=== PATIENT | male | born 1985 | race African-American/Black ===

== ENCOUNTER 2017-05-16 14:03 | Emergency (ER) | payer SELFPAY ==
--- NOTE | 2017-05-16 15:34 | RADIOLOGY REPORT (SQ) ---
EXAM DESCRIPTION: SHOULDER RIGHT 2 OR MORE VIEWS COMPLETED DATE/TIME: 05/16/2017 3:23 pm REASON FOR STUDY: pain COMPARISON: 04/19/2010 NUMBER OF VIEWS: Three views. TECHNIQUE: Internal rotation, external rotation, and Y view images acquired of the right shoulder. LIMITATIONS: None. FINDINGS: MINERALIZATION: Normal. BONES: No acute fracture. There is a bone fragment inferior to the distal clavicle which is unchange d, consistent with remote trauma. JOINTS: Old AC joint separation. VISUALIZED LUNGS AND RIBS: No pneumothorax. No rib fracture. SOFT TISSUES: No radiopaque foreign body. OTHER: No other significant finding. IMPRESSION: No acute findings. TECHNICAL DOCUMENTATION: JOB ID: [id number] [employer]- All Rights Reserved Reading location - IP/workstation name: [email or web address]
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
[2017-05-16 16:22] VITALS: BP 141/86
== END 2017-05-16 16:22 | disposition home or self-care (01) ==
LOC: ER 14:03
DX: T14.90XA Injury, unspecified, initial encounter (principal); X58.XXXA Exposure to other specified factors, initial encounter; M19.90 Unspecified osteoarthritis, unspecified site; M25.511 Pain in right shoulder
CPT/HCPCS: 99283

== ENCOUNTER 2017-07-12 11:50 | Emergency (ER) | payer SELFPAY ==
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
--- NOTE | 2017-07-12 14:33 | RADIOLOGY REPORT (SQ) ---
EXAM DESCRIPTION: KNEE RIGHT 4 VIEWS COMPLETED DATE/TIME: 07/12/2017 2:22 pm REASON FOR STUDY: pop and pain while standing now swelling COMPARISON: 01/15/2013 right knee films NUMBER OF VIEWS: Four views. TECHNIQUE: AP, lateral, and both oblique radiographic images acquired of the right knee. LIMITATIONS: None. FINDINGS: MINERALIZATION: Normal. BONES: No acute fracture or dislocation. No worrisome bone lesions. JOINT: Large suprapatellar knee joint effusion SOFT TISSUES: No soft tissue swelling. No radio-opaque foreign body. OTHER: No other significant finding. IMPRESSION: Large suprapatellar knee joint effusion, worrisome for internal derangement. No fracture. No malalignment. TECHNICAL DOCUMENTATION: JOB ID: [id number] [employer]- All Rights Reserved Reading location - IP/workstation name: [email or web address]
[2017-07-12] MEDS ORDERED: LIDOCAINE 2% VISCOUS SOLN 20 ML UDCUP PO ONE (15:06)
[2017-07-12] MEDS ORDERED: METOCLOPRAMIDE HCL ORAL SOLN 10 MG/10 ML UDCUP PO ONE (15:06)
[2017-07-12] MEDS ORDERED: MAG HYDROX/AL HYDROX/SIMETH SUSP 30 ML UDCUP PO ONE (15:06)
[2017-07-12 15:27] VITALS: BP 116/74
== END 2017-07-12 15:27 | disposition home or self-care (01) ==
LOC: ER 11:50
DX: S89.91XA Unspecified injury of right lower leg, initial encounter (principal); M25.461 Effusion, right knee; M25.561 Pain in right knee; M79.89 Other specified soft tissue disorders; K21.9 Gastro-esophageal reflux disease without esophagitis; X58.XXXA Exposure to other specified factors, initial encounter; Z87.891 Personal history of nicotine dependence
CPT/HCPCS: 99284; 73564; L1830; J3490

== ENCOUNTER 2018-02-14 08:29 | Emergency (ER) | payer SELFPAY ==
[2018-02-14] MEDS ORDERED: DEXAMETHASONE 4 MG TABLET PO ONE (10:09)
[2018-02-14] MEDS ORDERED: PSEUDOEPHEDRINE HCL 30 MG TABLET PO ONE (10:44)
[2018-02-14] MEDS ORDERED: LORATADINE 10 MG TABLET PO ONE (10:44)
[2018-02-14] MEDS ORDERED: IBUPROFEN 600 MG TABLET PO ONE (10:44)
[2018-02-14] MEDS ORDERED: GUAIFENESIN 600 MG TABLET.SA PO ONE (10:44)
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
[2018-02-14 11:00] VITALS: BP 135/87
== END 2018-02-14 11:01 | disposition home or self-care (01) ==
LOC: ER 08:29
DX: J06.9 Acute upper respiratory infection, unspecified (principal); H61.22 Impacted cerumen, left ear; J02.9 Acute pharyngitis, unspecified; B97.89 Other viral agents as the cause of diseases classified elsewhere; H92.09 Otalgia, unspecified ear; R13.10 Dysphagia, unspecified; R50.9 Fever, unspecified; R09.81 Nasal congestion; R09.89 Other specified symptoms and signs involving the circulatory and respiratory systems; Z87.891 Personal history of nicotine dependence
CPT/HCPCS: 87070; 87077; 87880; 99283

== ENCOUNTER 2018-04-15 21:15 | Emergency (ER) | payer SELFPAY ==
[2018-04-15] MEDS ORDERED: ONDANSETRON ODT 4 MG TAB (6 TAB/ER DISP) PO PRN (23:09)
[2018-04-15] MEDS ORDERED: SULFAMETHOXAZOLE/TRIMETHOPRIM 800-160 MG TABLET PO ONE (23:12)
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
[2018-04-16 05:10] VITALS: BP 132/60
== END 2018-04-15 23:40 | disposition home or self-care (01) ==
LOC: ER 21:15
DX: R19.7 Diarrhea, unspecified (principal); R68.83 Chills (without fever); R61 Generalized hyperhidrosis; R25.2 Cramp and spasm; K92.1 Melena; R11.0 Nausea
CPT/HCPCS: 99283

== ENCOUNTER 2018-07-23 06:18 | Emergency (ER) | payer SELFPAY ==
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
[2018-07-23] MEDS ORDERED: ACETAMINOPHEN 325 MG TABLET PO ONE (09:28)
[2018-07-23 09:40] VITALS: BP 134/82
[2018-07-23] MEDS ORDERED: CARBAMIDE PEROXIDE 6.5% OTIC SOLN 15 ML AD SCH (10:00)
== END 2018-07-23 09:47 | disposition home or self-care (01) ==
LOC: ER 06:18
DX: H61.21 Impacted cerumen, right ear (principal); H92.01 Otalgia, right ear
CPT/HCPCS: 99282; J3490